=== PATIENT | female | born 1985 | race Caucasian/White ===

== ENCOUNTER 2017-06-19 22:51 | Emergency (ER) | payer MEDICAID ==
[~2017-06-19] VITALS: Ht 162.6 cm; Wt 66.4 kg
[2017-06-19 22:55] VITALS: BP 107/64; PULSE 96; RESP 26; TEMP 97.6; O2SAT 97
[2017-06-19] MEDS ORDERED: SODIUM CHLOR 0.9% 1000 ML INJ 1,000 ML IV SCH ×2 (22:57→22:58)
[2017-06-19] MEDS ORDERED: PANTOPRAZOLE SODIUM 40 MG VIAL IVP ONE (23:00)
[2017-06-19] MEDS ORDERED: FAMOTIDINE 20 MG/2 ML VIAL IV PUSH ONE (23:00)
[2017-06-19] MEDS ORDERED: ONDANSETRON HCL 4 MG/2 ML VIAL IVP ONE (23:00)
[2017-06-19] MEDS ORDERED: SODIUM CHLORIDE 0.9% FLUSH 10 ML FLUSH IV FLUSH PRN (23:00)
[2017-06-19] MEDS ORDERED: THIAMINE INJ 100 MG in SODIUM CHLORIDE 0.9% INJ 100 ML IV ONE (23:00)
[2017-06-19 23:30] VITALS: BP 107/64; PULSE 94; RESP 18; TEMP 97.6; O2SAT 98
[2017-06-19 23:36] LABS: AUTOMATED NEUTROPHIL # 5.1 TH/MM3 (1.8-7.7); BASOPHIL % 0.7 % (0.0-2.0); EOSINOPHIL # 0.1 TH/MM3 (0-0.4); EOSINOPHIL % 1.9 % (0.0-4.0); HEMATOCRIT 30.8 % (35.0-46.0); HEMOGLOBIN 10.3 GM/DL (11.6-15.3); LYMPH % 20.6 % (9.0-44.0); LYMPHOCYTE # 1.4 TH/MM3 (1.0-4.8); MEAN CELL VOLUME 87.4 FL (80.0-100.0); MEAN CORPUSCULAR HEMOGLOBIN 29.4 PG (27.0-34.0); MEAN CORPUSCULAR HGB CONC 33.6 % (32.0-36.0); MEAN PLATELET VOLUME 7.9 FL (7.0-11.0); MONOCYTE # 0.2 TH/MM3 (0-0.9); NEUT % 73.8 % (16.0-70.0); PLATELET COUNT 231 TH/MM3 (150-450); RED BLOOD COUNT 3.52 MIL/MM3 (4.00-5.30); RED CELL DISTRIBUTION WIDTH 12.3 % (11.6-17.2); WHITE BLOOD COUNT 6.8 TH/MM3 (4.0-11.0)
[2017-06-19 23:44] LABS: CHLORIDE 121 MEQ/L (98-107); SODIUM (NA) 148 MEQ/L (136-145)
[2017-06-19 23:59] LABS: ALBUMIN 2.3 GM/DL (3.4-5.0); ALKALINE PHOSPHATASE 60 U/L (45-117); ALT (GPT) 24 U/L (10-53); AST (GOT) 14 U/L (15-37); BICARBONATE 19.4 MEQ/L (21.0-32.0); BLOOD UREA NITROGEN 4 MG/DL (7-18); CALCIUM 6.1 MG/DL (8.5-10.1); CREATININE 0.36 MG/DL (0.50-1.00); GLOMERULAR FILTRATION RATE 209 ML/MIN (>89); GLUCOSE,RANDOM 92 MG/DL (74-106); TOTAL BILIRUBIN ADULT 0.1 MG/DL (0.2-1.0); TOTAL PROTEIN 4.9 GM/DL (6.4-8.2)
[2017-06-20 00:01] LABS: CALCIUM-PROTEIN CORRECTED 7.1 MG/DL (8.5-10.1)
--- NOTE | 2017-06-20 00:13 | PD ---
HPI Chief Complaint: Alcohol/Drug Intoxication Time Seen by Provider: 22:57 Travel History International Travel<30 days: No Contact w/Intl Traveler<30days: No Traveled to known affect area: No History of Present Illness HPI The patient is a 32-year-old female with a past history of alcohol abuse but who apparently has not been drinking for multiple months who was drinking Jell- O shots containing vodka and a hard apple cider alcoholic drink today. The patient vomited at least 3 times prior to coming here. She is nauseated. She lives in [place]. She complains of midline epigastric pain which she claims is a 10/10 and burning sensation. She denies vomiting any blood. [facility] Past Medical History Medical History: Unable to Obtain Tetanus Vaccination: Unknown Influenza Vaccination: No ?: Unknown Past Surgical History Surgical History: Unable to Obtain Other Surgery: Yes (Geovani Marti ) Social History Alcohol Use: Yes (Per [facility] ) Tobacco Use: No Substance Use: Yes (HX Cocaine, marijuana) Allergies-Medications (Allergen,Severity, Reaction): Coded Allergies: No Known Allergies (Unverified , 06/19/17) Reported Meds & Prescriptions Reported Meds & Active Scripts Active Reported Wellbutrin Xl 24 HR (Bupropion HCl) 150 Mg Tab 150 Mg PO DAILY Review of Systems Except as stated in HPI: all other systems reviewed are Neg Physical Exam Narrative GENERAL: The patient is alert, anxious appearing, intoxicated appearing but later became cooperative in moderate apparent distress with her vomiting and epigastric discomfort. Her vital signs show temperature 97.6 with pulse of 96 and respirations 26 but are otherwise normal. SKIN: Focused skin assessment warm/dry. HEAD: Atraumatic. Normocephalic. EYES: Pupils equal and round. No scleral icterus. No injection or drainage. ENT: No nasal bleeding or discharge. Mucous membranes pink and moist. NECK: Trachea midline. No JVD. CARDIOVASCULAR: Regular rate and rhythm. No murmur appreciated. RESPIRATORY: No accessory muscle use. Clear to auscultation. Breath sounds equal bilaterally. GASTROINTESTINAL: Abdomen soft, with tenderness to direct palpation in the midline epigastrium, nondistended. Hepatic and splenic margins not palpable. No guarding or rebound is present. MUSCULOSKELETAL: No obvious deformities. No clubbing. No cyanosis. No edema. NEUROLOGICAL: Awake and alert. No obvious cranial nerve deficits. Motor grossly within normal limits. Normal speech. PSYCHIATRIC: The patient appears anxious and intoxicated and was initially uncooperative; insight and judgment fair. Data Data Last Documented VS Vital Signs Date Time Temp Pulse Resp B/P (MAP) Pulse Ox O2 Delivery O2 Flow Rate FiO2 06/19/17 23:30 97.6 94 18 107/64 (78) 98 Room Air Orders Orders Complete Blood Count With Diff (06/19/17 22:57) Comprehensive Metabolic Panel (06/19/17 22:57) Ecg Monitoring (06/19/17 22:57) Iv Access Insert/Monitor (06/19/17 22:57) Oximetry (06/19/17 22:57) Sodium Chloride 0.9% Flush (Ns Flush) (06/19/17 23:00) Sodium Chlor 0.9% 1000 Ml Inj (Ns 1000 M (06/19/17 22:57) Thiamine Inj (Thiamine Inj) (06/19/17 23:00) Alcohol (Ethanol) (06/19/17 22:57) Lipase (06/19/17 22:57) Ondansetron Inj (Zofran Inj) (06/19/17 23:00) Pantoprazole Inj (Protonix Inj) (06/19/17 23:00) Sodium Chlor 0.9% 1000 Ml Inj (Ns 1000 M (06/19/17 22:58) Famotidine Inj (Pepcid Inj) (06/19/17 23:00) Beta Hcg (Quant/Titer) (06/19/17 22:57) Potassium Chloride (Kcl) (06/20/17 00:15) Ondansetron Inj (Zofran Inj) (06/20/17 00:15) Sodium Chlor 0.9% 1000 Ml Inj (Ns 1000 M (06/20/17 00:15) Prochlorperazine Inj (Compazine Inj) (06/20/17 00:45) Labs Laboratory Tests Test 06/19/17 23:30 White Blood Count 6.8 TH/MM3 Red Blood Count 3.52 MIL/MM3 Hemoglobin 10.3 GM/DL Hematocrit 30.8 % Mean Corpuscular Volume 87.4 FL Mean Corpuscular Hemoglobin 29.4 PG Mean Corpuscular Hemoglobin Concent 33.6 % Red Cell Distribution Width 12.3 % Platelet Count 231 TH/MM3 Mean Platelet Volume 7.9 FL Neutrophils (%) (Auto) 73.8 % Lymphocytes (%) (Auto) 20.6 % Monocytes (%) (Auto) 3.0 % Eosinophils (%) (Auto) 1.9 % Basophils (%) (Auto) 0.7 % Neutrophils # (Auto) 5.1 TH/MM3 Lymphocytes # (Auto) 1.4 TH/MM3 Monocytes # (Auto) 0.2 TH/MM3 Eosinophils # (Auto) 0.1 TH/MM3 Basophils # (Auto) 0.0 TH/MM3 CBC Comment DIFF FINAL Differential Comment Blood Urea Nitrogen 4 MG/DL Creatinine 0.36 MG/DL Random Glucose 92 MG/DL Total Protein 4.9 GM/DL Albumin 2.3 GM/DL Calcium Level 6.1 MG/DL Alkaline Phosphatase 60 U/L Aspartate Amino Transf (AST/SGOT) 14 U/L Alanine Aminotransferase (ALT/SGPT) 24 U/L Total Bilirubin 0.1 MG/DL Sodium Level 148 MEQ/L Potassium Level 3.0 MEQ/L Chloride Level 121 MEQ/L Carbon Dioxide Level 19.4 MEQ/L Anion Gap 8 MEQ/L Estimat Glomerular Filtration Rate 209 ML/MIN Protein Corrected Calcium 7.1 MG/DL Lipase 112 U/L Human Chorionic Gonadotropin, Quant LESS THAN 1 MIU/ML Ethyl Alcohol Level 107 MG/DL MDM Medical Decision Making Medical Screen Exam Complete: Yes Emergency Medical Condition: Yes Medical Record Reviewed: Yes Interpretation(s) The CBC shows a hemoglobin of 10.3 and hematocrit of 30.8 but is otherwise unremarkable. The complete metabolic profile shows a total protein of 4.9, albumin 2.3, calcium 6.1 with protein corrected calcium of 7.1 and sodium 148 with potassium 3.0 and bicarb 19.4 but is otherwise normal. The beta-hCG is less than 1. Alcohol level is 107. The lipase is normal. Differential Diagnosis Alcohol intoxication, alcohol gastritis, ulcer pain, electrolyte disorder, hypocalcemia, hypercalcemia, anemia Narrative Course It is now 0013 and the patient is still nauseated. The alcohol level is only minimally elevated. This appears to be an alcohol gastritis. It is now 0204 and the patient states she is not nauseated and wants to go home. Diagnosis Primary Impression: Alcoholic gastritis Additional Instructions: As we discussed, stay away from alcohol. Follow-up this week with your primary care physician. Med/Other Pt SpecificInfo: Prescription(s) given Scripts Prochlorperazine Maleate (Prochlorperazine Maleate) 10 Mg Tab 10 MG PO Q6H Y for NAUSEA OR VOMITING, #20 TAB 0 Refills Prov: Dada Trivedi MD 06/20/17 Disposition: 01 DISCHARGE HOME Condition: Stable Dada Trivedi MD Jun 20, 2017 00:13
[2017-06-20] MEDS ORDERED: ONDANSETRON HCL 4 MG/2 ML VIAL IV ONE (00:15)
[2017-06-20] MEDS ORDERED: POTASSIUM CHLORIDE 20 MEQ CONTROLLED RELEASE TAB PO ONE (00:15)
[2017-06-20] MEDS: SODIUM CHLOR 0.9% 1000 ML INJ 1,000 ML IV SCH ×2 (00:18→00:45)
[2017-06-20] MEDS ORDERED: PROCHLORPERAZINE INJ 10 MG/2 ML VIAL IV PUSH ONE (00:45)
[2017-06-20] MEDS ORDERED: BUPR150XL PO (00:56)
[2017-06-20] MEDS ORDERED: PROC10TA PO (02:06)
[2017-06-20 02:19] VITALS: BP 108/63; PULSE 89
== END 2017-06-20 02:33 | disposition home or self-care (01) ==
LOC: PHED 22:51
DX: K29.20 Alcoholic gastritis without bleeding (principal); Z79.899 Other long term (current) drug therapy
CPT/HCPCS: 80053; 80307; 83690; 84702; 85025; 96361; 96365; 96375; 96376; 99284; C9113; J0780; J2405; J3411; J7030